=== PATIENT | male | born 1985 | race Caucasian/White ===

== ENCOUNTER 2016-05-21 10:38 | Emergency (ER) | payer OTHER ==
[2016-05-21] MEDS ORDERED: TORAdol 30 mg Injection IV ONE (11:11)
[2016-05-21] MEDS ORDERED: Hydromorphone 1 mg/ml Ampule IV ONE (11:11)
[2016-05-21] MEDS ORDERED: BENADRYL 50 MG/ML IV ONE (11:11)
[2016-05-21 11:19] LABS: COMPLETE URINE MICROSCOPIC? YES; Collection Type CCMS
[2016-05-21] MEDS ORDERED: BENADRYL 50 MG/ML ONE (11:25)
[2016-05-21] MEDS ORDERED: TORAdol 30 mg Injection ONE (11:25)
[2016-05-21] MEDS ORDERED: Hydromorphone 1 mg/ml Ampule ONE (11:25)
--- NOTE | 2016-05-21 12:20 | ERPHSYRPT ---
- History of Present Illness Time Seen by Provider: 05/21/16 10:59 Source: patient, family () Patient Subjective Stated Complaint: pt c/o abdominal pain with left testicular pain. pt denies any vomiting or diarrhea. denies any fever. denies any dysuria or flank pain. Triage Nursing Assessment: pt pink, warm, dry. abdomen soft non tender. difuse pain all over. pt afebrile. Physician History: CC: left testicle pain hx: 30 y/o healthy male patient. He notes 1-2 day hx of left testicle pain, lower abd pain. Mild left testicle swelling is present. Normal urination. No penile discharge. No fever or chills. Pain radiates to lower abd. No flank pain. 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 Last ejaculation 2 days ago- normal. Timing/Duration: day(s) (1-2) Severity of Pain-Max: moderate Severity of Pain-Current: moderate Allergies/Adverse Reactions: Penicillins Allergy (Verified 05/21/16 10:56) Hx Tetanus, Diphtheria Vaccination/Date Given: Yes (up to date) Hx Influenza Vaccination/Date Given: No Hx Pneumococcal Vaccination/Date Given: No Immunizations Up to Date: Yes - Past Medical History Pertinent Past Medical History: No Neurological History: No Pertinent History ENT History: No Pertinent History Cardiac History: No Pertinent History Respiratory History: No Pertinent History Endocrine Medical History: No Pertinent History GI Medical History: No Pertinent History - Past Surgical History Past Surgical History: No - Social History Smoking Status: Never smoker Exposure to second hand smoke: No Drug Use: none 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) - Review of Systems Constitutional: No Fever, No Chills Eyes: No Symptoms Ears, Nose, & Throat: No Symptoms Respiratory: No Cough, No Dyspnea Cardiac: No Chest Pain Abdominal/Gastrointestinal: Abdominal Pain, Nausea, No Vomiting, No Diarrhea Genitourinary Symptoms: Testicle Pain (left), No Dysuria, No Hematuria, No Urinary Retention, No Flank Pain Musculoskeletal: No Back Pain Skin: No Rash Neurological: No Headache All Other Systems: Reviewed and Negative - Nursing Vital Signs Nursing Vital Signs: Initial Vital Signs Temperature 97.6 F Temperature Source Oral Pulse Rate 68 Respiratory Rate 18 Blood Pressure [Right Arm] 123/72 Pain Intensity 0 - Physical Exam General Appearance: alert Eye Exam: PERRL/EOMI Ears, Nose, Throat Exam: normal ENT inspection, moist mucous membranes Neck Exam: normal inspection, non-tender, supple Respiratory Exam: normal breath sounds, lungs clear Cardiovascular Exam: regular rate/rhythm, No murmur Gastrointestinal/Abdomen Exam: soft, other (no point tenderness, no guarding, no mass) Male Genital Exam: circumcised (left testicle has mild epidydimal swelling and tenderness, no hernia, no palpable mass), No urethral discharge Extremity Exam: normal inspection, normal range of motion Neurologic Exam: alert, oriented x 3, cooperative, sensation nml, No motor deficits Skin Exam: warm, dry, No rash SpO2 Interpretation: normal SpO2: 99 Oxygen Delivery: Room Air - Course Nursing assessment & vital signs reviewed: Yes - Radiology Ultrasound Exam scrotal Ultrasound: Other (no sign of torsion, mild increased flow left epididymis. No hydronephrosis. normal appearing bladder.) Ordered Tests: Active Orders 24 hr Category Date Time Status IV Insertion STAT Care 05/21/16 11:11 Active NPO (ED) STAT Care 05/21/16 11:11 Active TESTICLE [US] Stat Exams 05/21/16 11:12 Ordered CULTURE,URINE Stat Lab 05/21/16 11:00 Received UA W/ MICROSCOPIC Stat Lab 05/21/16 11:00 Completed Medication Summary Discontinued Medications Generic Name Dose Route Start Last Admin Trade Name Ronniq PRN Reason Stop Dose Admin Diphenhydramine HCl 25 mg 05/21/16 11:11 05/21/16 11:28 Benadryl 50 Mg/Ml IV 05/21/16 11:12 25 mg STAT ONE Administration Diphenhydramine HCl Confirm 05/21/16 11:25 Benadryl 50 Mg/Ml Administered 05/21/16 11:26 Dose 50 mg .ROUTE .STK-MED ONE Hydromorphone HCl 1 mg 05/21/16 11:11 05/21/16 11:28 Hydromorphone 1 Mg/Ml Ampule IV 05/21/16 11:12 1 mg STAT ONE Administration Hydromorphone HCl Confirm 05/21/16 11:25 Hydromorphone 1 Mg/Ml Ampule Administered 05/21/16 11:26 Dose 1 mg .ROUTE .STK-MED ONE Ketorolac Tromethamine 30 mg 05/21/16 11:11 05/21/16 11:28 Toradol 30 Mg Injection IV 05/21/16 11:12 30 mg STAT ONE Administration Ketorolac Tromethamine Confirm 05/21/16 11:25 Toradol 30 Mg Injection Administered 05/21/16 11:26 Dose 30 mg .ROUTE .STK-MED ONE Lab/Rad Data: Laboratory Results 05/21/16 Range/Units 11:00 Ur Collection Type CCMS Urine Color YELLOW (YELLOW) Urine Appearance CLOUDY (CLEAR) Urine pH 7.0 (5-6) Ur Specific [place] 1.025 (1.005-1.025) Urine Protein 30 (Negative) Urine Glucose (UA) NEGATIVE (NEGATIVE) mg/dL Urine Ketones NEGATIVE (NEGATIVE) Urine Nitrite NEGATIVE (NEGATIVE) Urine Bilirubin NEGATIVE (NEGATIVE) Urine Urobilinogen 0.2 (0-1) mg/dL Urine WBC (Auto) NEGATIVE (NEGATIVE) Urine RBC (Auto) NEGATIVE (0-5) Rory/ul Urine Bacteria FEW (NEGATIVE) /HPF Urine Mucus SLIGHT (NEGATIVE) /HPF Specimen Received 1100 05/21/16 - Progress Progress Note: 05/21/16 12:19 will get ultrasound to rule out torsion. 05/21/16 12:44 Pain improved. Will Rx epididymitis. Instr given. Counseled pt/family regarding: lab results, diagnosis, need for follow-up, rad results - Departure Time of Disposition: 12:45 Departure Disposition: Home Clinical Impression: Left epididymitis Condition: Stable Critical Care Time: No Referrals: ANASTASIA LOZOYA [Primary Care Provider] - Instructions: Abdominal Pain-Adult, Epididymitis Additional Instructions: Tight fitting shorts. No intercourse until follow up. Elevate scrotum. Ice packs off and on. Rx motrin. Rx doxycycline to start two doses today. Call Monday to arrange follow up appointment. Return for problems or concerns. Prescriptions: Ibuprofen 600 mg PO Q6H PRN PRN #24 tablet PRN Reason: Pain Doxycycline Monohydrate 1 cap PO BID #20 capsule
[2016-05-21 12:23] LABS: Bacteria FEW /HPF (NEGATIVE); Mucus SLIGHT /HPF (NEGATIVE)
[2016-05-21 12:59] VITALS: BP 128/71; PULSE 87; O2SAT 100
--- NOTE | 2016-05-21 20:38 | XRAY ---
Indication: Left testicular pain. Two-dimensional testicular sonogram performed. Comparison: None Both testicles homogeneous in echogenicity. Right testicle measures 4.1 x 2.0 x 2.9 cm and the left measures 4.0 x 2.0 x 2.8 cm. Left testicle demonstrates mild asymmetric increased color Doppler flow compared to the contralateral right. Tiny bilateral hydroceles. No suspicious extratesticular mass. Incidental left-sided varicoceles, accentuated with Valsalva maneuvering. Impression: Left testicle demonstrates asymmetric increased color flow, possible orchitis. Also incidental left-sided varicocele. Negative for torsion or suspicious intra-/extratesticular mass. Comment: Preliminary report was given.
== END 2016-05-21 12:58 | disposition home or self-care (01) ==
LOC: ED 10:38
DX: N45.1 Epididymitis (principal); R10.30 Lower abdominal pain, unspecified; N50.812 Left testicular pain; R11.0 Nausea
CPT/HCPCS: 36000; 76870; 81000; 87086; 96374; 96375; 99283; 99284; J1170; J1200; J1885